=== PATIENT | male | born 1970 | race Two or more races ===

== ENCOUNTER 2023-08-05 08:32 | Emergency (ER) | payer OTHER ==
[~2023-08-05] VITALS: Ht 175.3 cm; Wt 72.6 kg
[2023-08-05 08:46] VITALS: BP 132/76; PULSE 102; RESP 20; TEMP 101; O2SAT 97
[2023-08-05] MEDS ORDERED: KETOROLAC 30 MG/ML VIAL IM ONE (09:05)
[2023-08-05] MEDS ORDERED: ACETAMINOPHEN EXTRA STRENGTH 500 MG TAB PO ONE (09:05)
[2023-08-05] MEDS ORDERED: methocarbamoL 500 MG TAB PO STA (10:14)
[2023-08-05] MEDS ORDERED: LIDOCAINE 5% 1 EA PATCH TP ONE (10:15)
[2023-08-05 10:24] VITALS: BP 139/93; PULSE 111; RESP 20; TEMP 96.6; O2SAT 96
[2023-08-05 10:37] LABS: FLU A ANTIGEN negative (NEGATIVE); FLU B ANTIGEN negative (NEGATIVE)
[2023-08-05] MEDS ORDERED: LID5T TP (10:46)
[2023-08-05] MEDS ORDERED: IBUP-2213 PO (10:46)
[2023-08-05] MEDS ORDERED: ALBU0.0912 IH (10:46)
[2023-08-05] MEDS ORDERED: BENZ100C6 PO (10:46)
[2023-08-05] MEDS ORDERED: ACET-10509 PO (10:46)
== END 2023-08-05 11:13 | disposition home or self-care (01) ==
LOC: MED 08:32
DX: U07.1 COVID-19 (principal); R07.89 Other chest pain; Z79.899 Other long term (current) drug therapy; Z79.1 Long term (current) use of non-steroidal anti-inflammatories (NSAID)
CPT/HCPCS: 71045; 87426; 87804; 96372; 99284; J1885